=== PATIENT | female | born 1965 | race African-American/Black ===

== ENCOUNTER 2024-08-03 15:20 | Emergency (ER) | payer MEDICARE, MEDICAID, SELFPAY ==
[2024-08-03 15:31] VITALS: BP 149/96; PULSE 95; TEMP 36.8; O2SAT 98; BMI 52.4
--- NOTE | 2024-08-03 15:55 | CT_ITS ---
The [address] [address] Patient Name: SHANNEN TINEO MRN: [id number] date: 1965 Sex: F Assigned Patient Location: ER Current Patient Location: ER Accession/Order Number: [id number] Exam Date: 08/03/2024 15:48 Report Date: 08/03/2024 16:14 At the request of: KAREEM GRAY Procedure: CT head/brain wo con EXAMINATION: CT head/brain wo con HISTORY: Head injury COMPARISON: No relevant comparison available. TECHNIQUE: Axial CT images were obtained without IV contrast. Dose reduction techniques were achieved by using automated exposure control and/or adjustment of mA and/or kV according to patient size and/or use of iterative reconstruction technique. FINDINGS: BRAIN: No edema, hemorrhage, mass, acute infarction, or inappropriate atrophy. CSF SPACES: No hydrocephalus, subarachnoid hemorrhage, or mass. Appropriate for age. SKULL: No fracture, mass, or other significant visible lesion. SINUSES: No significant mucosal thickening or fluid on the limited views. ORBITS: No appreciable abnormality on the limited views. OTHER: Negative CT/CT head/brain wo con IMPRESSION: 1. No intercranial hemorrhage or suspicious abnormality. 2. No fracture of the calvarium or scalp hematoma. Electronically authenticated by: BETZY COOPER Date: 08/03/2024 16:14
--- NOTE | 2024-08-03 16:00 | XR_ITS ---
The [address] [address] Patient Name: SHANNEN TINEO MRN: [id number] date: 1965 Sex: F Assigned Patient Location: ER Current Patient Location: ER Accession/Order Number: [id number] Exam Date: 08/03/2024 15:55 Report Date: 08/03/2024 16:16 At the request of: KAREEM GRAY Procedure: XR elbow LT min 3V PROCEDURE: XR elbow LT min 3V HISTORY: fall COMPARISON: None. FINDINGS: BONES:No fracture, acute abnormality, or significant arthropathy. SOFT TISSUES:No visible soft tissue swelling. EFFUSION:None visible. OTHER: Negative. XR/XR elbow LT min 3V IMPRESSION: 1. No acute bone abnormality. Mild degenerative changes. Electronically authenticated by: BETZY COOPER Date: 08/03/2024 16:16
--- NOTE | 2024-08-03 17:37 | ED_ITS ---
HPI HPI - Head Injury General Chief complaint: Head Injury Stated complaint: Head Injury Time Seen by Provider: 08/03/24 15:35 Source: patient Mode of arrival: walk-in History of Present Illness HPI Narrative: Patient is a 58-year-old female who presents to the emergency department for evaluation of a head injury from 3 days ago in addition to an injury to the left arm. She states that she was reaching for her walker which she uses to ambulate since she has a bad hip. She states she missed the walker and fell forward into a door. She hit the left latter-day in addition to her left arm. She had no loss of consciousness, no nausea or vomiting, no visual changes, no neck pain. She has chronic back pain. She states she contacted her PCP office and they called in a prescription of tramadol for her. She is able to ambulate at baseline. Related Data Allergies Allergy/AdvReac Type Severity Reaction Status Date / Time lisinopril AdvReac Severe Hives Verified 08/03/24 15:34 Opioid HPI Opioid Management Most Recent Pain and Opioid Data: No Data to Display Review of Systems ROS Constitutional Denies: fever or chills Eyes Denies: change in vision Ears, nose, mouth, and throat Denies: throat pain or nasal congestion Respiratory Denies: shortness of breath Gastrointestinal Denies: nausea or vomiting Musculoskeletal Reports: back pain; Denies: neck pain or extremity pain Integumentary/Breast Denies: rash Hematologic/Lymphatic Denies: easy bruising or easy bleeding PFSH PFS Social History Little interest or pleasure in doing things: not at all Feeling down, depressed, or hopeless: not at all Exam Narrative Exam Narrative: Gen.: Awake, alert, in no distress Head: Normocephalic, atraumatic ENT: Moist mucous membranes, no scalp hematoma, dental injury or C-spine tenderness Respiratory: No respiratory distress Extremities: Moves extremities equally, no bony tenderness of the left elbow or humerus, no obvious deformity with normal range of motion and left arm is used who ambulate with a walker Psych: Normal mood and affect Neuro: No focal neuro deficit Skin: Warm, dry, intact Constitutional Vital Signs, click to edit/add: Last Vital Signs Temp 98.2 F 08/03/24 15:31 Pulse 95 H 08/03/24 15:31 Resp 18 08/03/24 15:31 BP 149/96 H 08/03/24 15:31 Pulse Ox 98 08/03/24 15:31 O2 Del Method Room Air 08/03/24 15:31 Course Vital Signs Vital signs: Vital Signs Temperature 98.2 F 08/03/24 15:31 Pulse Rate 95 H 08/03/24 15:31 Respiratory Rate 18 08/03/24 15:31 Blood Pressure 149/96 H 08/03/24 15:31 Pulse Oximetry 98 08/03/24 15:31 Oxygen Delivery Method Room Air 08/03/24 15:31 Temperature 98.2 F 08/03/24 15:31 Pulse Rate 95 H 08/03/24 15:31 Respiratory Rate 18 08/03/24 15:31 Blood Pressure 149/96 H 08/03/24 15:31 Pulse Oximetry 98 08/03/24 15:31 Oxygen Delivery Method Room Air 08/03/24 15:31 MDM - Head Injury MDM Narrative Medical decision making narrative: Patient sent for CTs of the head and x-rays of the left elbow from the [facility]. The studies are unremarkable. She has a benign exam. She states her PCP called in tramadol for her, I instructed her to contact the ER if that prescription is not there. Follow-up with PCP and return to the ER if symptoms change or worsen. Rest, ice, gentle stretching for the arm. SUPERVISED APC VISIT, PHYSICIAN ATTESTATION: Based on the medical record the care appears appropriate. ? Medical Records Attestation: I reviewed the patient's medical records. Imaging Data CT scan - head: Attestation: I have reviewed the pertinent imaging results. Radiologist's impression: ITS Impressions Head CT 08/03/24 15:55 IMPRESSION: 1. No intercranial hemorrhage or suspicious abnormality. 2. No fracture of the calvarium or scalp hematoma. Electronically authenticated by: BETZY COOPER Date: 08/03/2024 16:14 Elbow X-Ray 08/03/24 16:00 IMPRESSION: 1. No acute bone abnormality. Mild degenerative changes. Electronically authenticated by: BETZY COOPER Date: 08/03/2024 16:16 Discharge Plan Discharge Chief Complaint: Head Injury Clinical Impression: Closed head injury, Contusion of left arm Patient Disposition: Home, Self-Care Time of Disposition Decision: 17:37 Condition: Good Print Language: Faroese Instructions: Head Injury (ED), Contusion in Adults (ED) Referrals: ANTHONY CROWLEY [Primary Care Provider] - 1 week
== END 2024-08-03 17:47 | disposition home or self-care (01) ==
PROVIDERS: Emergency Provider Emergency Medicine; PCP Family Medicine
DX: S09.8XXA Other specified injuries of head, initial encounter (principal); S40.022A Contusion of left upper arm, initial encounter; W19.XXXA Unspecified fall, initial encounter
CPT/HCPCS: 70450; 73080; 99284